=== PATIENT | female | born 1970 | race African-American/Black ===

== ENCOUNTER → 2021-07-22 | Day surgery (SDC) | payer OTHER ==
[2021-07-20 15:27] LABS: ANION GAP 12.8 mmol/L (8-16); CALCIUM 9.1 mg/dL (8.4-10.2); CREATININE, SERUM 0.75 mg/dL (0.57-1.11); POTASSIUM 3.8 mmol/L (3.5-5.1)
[~2021-07-22] MED LIST: BUPIVACAINE HCL 0.5% INJ 30 ML VIAL INJ ONE; DEXAMETHASONE SOD PHOS INJ 4 MG/ML SDV ONE; GABAPENTIN300 MG PO; HYDROCHLOROTHIA25 MG PO; MOTRIN200 MG PO; SODIUM CHLORIDE 0.9% 50ML 50 ML ONE
[2021-07-22 08:35] VITALS: BP 125/85
== END | disposition home or self-care (01) ==
LOC: OR 06:41
PROVIDERS: ATTEND Podiatrist Foot & Ankle Surgery
DX: T84.84XA Pain due to internal orthopedic prosthetic devices, implants and grafts, initial encounter (principal); L90.5 Scar conditions and fibrosis of skin; I10 Essential (primary) hypertension; Y83.8 Other surgical procedures as the cause of abnormal reaction of the patient, or of later complication, without mention of misadventure at the time of the procedure; Z01.810 Encounter for preprocedural cardiovascular examination; Z01.812 Encounter for preprocedural laboratory examination; Z01.818 Encounter for other preprocedural examination; Z20.822 Contact with and (suspected) exposure to COVID-19; Z68.42 Body mass index [BMI] 45.0-49.9, adult
CPT/HCPCS: 20680; 36415; 71046; 80048; 93005; J0690; U0002; J1100